=== PATIENT | male | born 1965 | race Caucasian/White ===

== ENCOUNTER 2022-03-15 11:04 | Emergency (ER) | payer OTHER, SELFPAY ==
[2022-03-15 11:27] VITALS: BP 131/101; PULSE 95; RESP 14; TEMP 36.3; O2SAT 98
--- NOTE | 2022-03-15 12:27 | ED.GENADULT ---
HPI - General Adult General Chief complaint: Back Pain/Injury Stated complaint: neck pain Time Seen by Provider: 03/15/22 11:54 History of Present Illness HPI narrative: 56-year-old male presenting to the emergency department for evaluation of left-sided neck pain. 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 Patient did not actually fall. Patient states in order to recover from the stumbling he did end up and strained the left side of his neck. Patient states that he is able to turn to the right but does have increased tightness when he turns to the left. Patient denies any prior history of neck or back surgeries. Patient is diabetic but states his hemoglobin A1c is well controlled. Patient is on metformin and Januvia Related Data Allergies Allergy/AdvReac Type Severity Reaction Status Date / Time No Known Allergies Allergy Verified 03/15/22 11:32 Review of Systems Review of Systems: CONSTITUTIONAL: Denies fever, chills, or sweats. EYES: Denies visual changes, redness, or discharge. ENT: Denies rhinorrhea, congestion, sore throat, or otalgia. CARDIOVASCULAR: Denies chest pain, palpitations, or edema. RESPIRATORY: Denies cough or dyspnea. GASTROINTESTINAL: Denies abdominal pain, nausea, vomiting, or diarrhea. GENITOURINARY: Denies dysuria or hematuria. SKIN: Denies rash or itching. MUSCULOSKELETAL: See HPI NEUROLOGIC: Some decrease sensation over the left lateral thenar eminence PSYCHIATRIC: Denies anxiety or depression. Exam Narrative: APPEARANCE: Well appearing, no pain, no distress, well-nourished. HEAD: normocephalic, atraumatic. EYES: PERRLA/EOMI, conjunctivae clear. NOSE: Normal no drainage EARS:TMS clear with good light reflex. THROAT: Pharynx clear, no exudate. NECK: Supple. No adenopathy, no masses. RESPIRATORY: Airway patent, respirations nonlabored. Clear to auscultation bilaterally, no rales, rhonchi, wheezing. CARDIOVASCULAR: Regular rate and rhythm without murmurs rubs or gallops. ABDOMINAL: Soft, nontender, nondistended, normal bowel sounds MUSCULOSKELETAL: Moves all extremities. Left-sided neck strain NEURO: Alert. Cranial nerves II through XII intact. Grossly intact SKIN: Warm, dry. Normal Color Course Course Emergency Course: Patient denies any specific incident of fall. Patient states he did stumble but did not have an actual fall. Low concern for cervical spine injury. Patient will be started on a Medrol Dosepak and Flexeril. Patient was encouraged of close follow-up with his primary care physician Vital Signs Vital signs: Vital Signs Temperature 97.4 F L 03/15/22 11:27 Pulse Rate 95 03/15/22 11:27 Respiratory Rate 14 03/15/22 11:27 Blood Pressure 131/101 H 03/15/22 11:27 Pulse Oximetry 98 03/15/22 11:27 Oxygen Delivery Room Air 03/15/22 11:27 Temperature 97.4 F L 03/15/22 11:27 Pulse Rate 95 03/15/22 11:27 Respiratory Rate 14 03/15/22 11:27 Blood Pressure 131/101 H 03/15/22 11:27 Pulse Oximetry 98 03/15/22 11:27 Oxygen Delivery Room Air 03/15/22 11:27 Medical Decision Making Vital Signs Vital Signs: Vital Signs Temperature 97.4 F L 03/15/22 11:27 Pulse Rate 95 03/15/22 11:27 Respiratory Rate 14 03/15/22 11:27 Blood Pressure 131/101 H 03/15/22 11:27 Pulse Oximetry 98 03/15/22 11:27 Oxygen Delivery Room Air 03/15/22 11:27 Temperature 97.4 F L 03/15/22 11:27 Pulse Rate 95 03/15/22 11:27 Respiratory Rate 14 03/15/22 11:27 Blood Pressure 131/101 H 03/15/22 11:27 Pulse Oximetry 98 03/15/22 11:27 Oxygen Delivery Room Air 03/15/22 11:27 Discharge Plan Discharge Clinical Impression: Wry neck Patient Disposition: Home, Self-Care Condition: Stable Instructions: Antibiotic Form, Acute Neck Pain (ED) Additional Instructions: Medrol Dosepak as directed till completed. Flexeril for muscle spasm. Tylenol a
== END 2022-03-15 13:00 | disposition home or self-care (01) ==
PROVIDERS: Emergency Provider Emergency Medicine
DX: S13.4XXA Sprain of ligaments of cervical spine, initial encounter (principal); E11.9 Type 2 diabetes mellitus without complications; Z79.84 Long term (current) use of oral hypoglycemic drugs; W22.8XXA Striking against or struck by other objects, initial encounter
CPT/HCPCS: 99283